=== PATIENT | female | born 1980 | race Hispanic/Latino ===

== ENCOUNTER 2021-11-17 08:22 | Emergency (ER) | payer SELFPAY ==
[~2021-11-17] VITALS: Ht 149.9 cm; Wt 61.2 kg
[2021-11-17] MEDS ORDERED: SODIUM CHLORIDE FLUSH 10 ML SYR IV PRN (08:45)
[2021-11-17 09:04] LABS: BASOPHILS # (AUTO) 0.1 (0.0-0.1); BASOPHILS % 1.3 % (0.0-1.0); EOSINOPHILS # (AUTO) 0.1 (0.0-0.4); EOSINOPHILS % 2.9 % (0.0-6.0); HEMATOCRIT 33.8 % (34.2-44.1); HEMOGLOBIN 9.7 g/dL (12.0-16.0); LYMPHOCYTES # (AUTO) 1.7 (1.0-3.2); LYMPHOCYTES % 42.9 % (18.0-39.1); MEAN CORPUSCULAR HEMOGLOBIN 20.2 pg (28-32); MEAN CORPUSCULAR HGB CONC 28.7 g/dL (31-35); MEAN CORPUSCULAR VOLUME 70.3 fL (81-99); MONOCYTES # (AUTO) 0.3 (0.2-0.8); MONOCYTES % 8.1 % (4.4-11.3); NEUTROPHILS # (AUTO) 1.7 (2.1-6.9); NEUTROPHILS % 44.8 % (38.7-80.0); PLATELET COUNT 342 x10e3/uL (140-360); RED BLOOD COUNT 4.81 x10e6/uL (3.6-5.1); RED CELL DISTRIBUTION WIDTH 18.3 % (11.7-14.4)
[2021-11-17 09:22] LABS: INR 0.82; PARTIAL THROMBOPLASTIN TIME 29.9 seconds (23.8-35.5); PROTHROMBIN TIME 12.1 seconds (11.9-14.5)
[2021-11-17 09:48] LABS: ALANINE AMINOTRANSFERASE 14 IU/L (0-55); ALBUMIN 3.8 g/dL (3.5-5.0); ALBUMIN/GLOBULIN RATIO 1.3 (0.8-2.0); ALKALINE PHOSPHATASE 89 IU/L (40-150); BLOOD UREA NITROGEN 12 mg/dL (7-26); BUN/CREATININE RATIO 16 (6-25); CALCIUM 8.7 mg/dL (8.4-10.2); CARBON DIOXIDE 20 mmol/L (22-29); CHLORIDE 112 mmol/L (98-107); CREATININE, SERUM 0.76 mg/dL (0.57-1.11); GLUCOSE 102 mg/dL (74-118); SODIUM 142 mmol/L (136-145)
[2021-11-17 09:57] LABS: CLARITY,URINE CLEAR (CLEAR); COLOR,URINE YELLOW (YELLOW); KETONES,URINE NEGATIVE (NEGATIVE); LEUKOCYTE ESTERASE ,URINE NEGATIVE (NEGATIVE); NITRITE,URINE NEGATIVE (NEGATIVE); PROTEIN,URINE DIPSTICK NEGATIVE (NEGATIVE)
[2021-11-17 09:58] LABS: AMPHETAMINES SCREEN,URINE NEGATIVE (NEGATIVE); BENZODIAZEPINES SCREEN,URINE NEGATIVE (NEGATIVE); PHENCYCLIDINE SCREEN,URINE NEGATIVE (NEGATIVE); URINE UROBILINOGEN 0.2 mg/dL (0.2 - 1)
[2021-11-17 10:04] LABS: BACTERIA,URINE FEW /HPF; EPITHELIAL CELLS,URINE FEW /LPF; RBC,URINE 0-5 /HPF (0-5); WBC,URINE (MAN) 0-5 /HPF (0-5)
[2021-11-17] MEDS ORDERED: FERROUS SULFAT325 MG PO (11:20)
[2021-11-17] MEDS ORDERED: DOCUSATE SODIU100 MG PO (11:20)
[2021-11-17 11:35] VITALS: BP 105/64
== END 2021-11-17 11:37 | disposition home or self-care (01) ==
LOC: ER 08:32
DX: R42 Dizziness and giddiness (principal); D64.9 Anemia, unspecified; F12.90 Cannabis use, unspecified, uncomplicated; Z20.822 Contact with and (suspected) exposure to COVID-19
CPT/HCPCS: 36415; 70450; 71045; 80053; 80307; 81001; 84484; 84702; 85025; 85610; 85730; 93005; 94760; 99284; U0002

== ENCOUNTER 2022-08-13 01:40 | Emergency (ER) | payer SELFPAY ==
[~2022-08-13] VITALS: Ht 149.9 cm; Wt 61.2 kg
[~2022-08-13 01:40] MED LIST: DOCUSATE SODIU100 MG PO; FERROUS SULFAT325 MG PO
[2022-08-13] MEDS ORDERED: SODIUM CHLORIDE FLUSH 10 ML SYR IV PRN (02:00)
[2022-08-13] MEDS ORDERED: ASPIRIN 325 MG TAB PO ONE (02:00)
[2022-08-13 02:03] LABS: BASOPHILS % 0.6 % (0.0-1.0); EOSINOPHILS # (AUTO) 0.1 (0.0-0.4); EOSINOPHILS % 2.2 % (0.0-6.0); HEMATOCRIT 36.8 % (34.2-44.1); HEMOGLOBIN 10.9 g/dL (12.0-16.0); LYMPHOCYTES # (AUTO) 2.4 (1.0-3.2); LYMPHOCYTES % 36.8 % (18.0-39.1); MEAN CORPUSCULAR HEMOGLOBIN 23.3 pg (28-32); MEAN CORPUSCULAR HGB CONC 29.6 g/dL (31-35); MEAN CORPUSCULAR VOLUME 78.6 fL (81-99); MONOCYTES # (AUTO) 0.6 (0.2-0.8); MONOCYTES % 8.8 % (4.4-11.3); NEUTROPHILS # (AUTO) 3.3 (2.1-6.9); NEUTROPHILS % 51.3 % (38.7-80.0); PLATELET COUNT 310 x10e3/uL (140-360); RED BLOOD COUNT 4.68 x10e6/uL (3.6-5.1); RED CELL DISTRIBUTION WIDTH 16.3 % (11.7-14.4)
[2022-08-13 02:13] LABS: INR 0.9; PROTHROMBIN TIME 12.6 seconds (11.9-14.5)
[2022-08-13 02:14] LABS: PARTIAL THROMBOPLASTIN TIME 31.3 seconds (23.8-35.5)
[2022-08-13] MEDS ORDERED: KETOROLAC TROMETHAMINE 30 MG/ML VIAL IV STA (02:21)
[2022-08-13 02:22] LABS: ALANINE AMINOTRANSFERASE 59 IU/L (0-55); ALBUMIN 3.9 g/dL (3.5-5.0); ALBUMIN/GLOBULIN RATIO 1.3 (0.8-2.0); ALKALINE PHOSPHATASE 89 IU/L (40-150); ANION GAP 14.7 mmol/L (8-16); BLOOD UREA NITROGEN 16 mg/dL (7-26); BUN/CREATININE RATIO 20 (6-25); CALCIUM 9.1 mg/dL (8.4-10.2); CARBON DIOXIDE 21 mmol/L (22-29); CHLORIDE 109 mmol/L (98-107); CREATININE, SERUM 0.82 mg/dL (0.57-1.11); GLUCOSE 108 mg/dL (74-118); POTASSIUM 3.7 mmol/L (3.5-5.1); SODIUM 141 mmol/L (136-145)
[2022-08-13] MEDS ORDERED: METOCLOPRAMIDE HCL 10 MG/2ML VIAL IV ONE (02:30)
[2022-08-13] MEDS ORDERED: SODIUM CHLORIDE 0.9% 1000ML 1,000 ML IV SCH (02:30)
[2022-08-13 02:38] LABS: CLARITY,URINE CLEAR (CLEAR); COLOR,URINE YELLOW (YELLOW); KETONES,URINE NEGATIVE (NEGATIVE); LEUKOCYTE ESTERASE ,URINE NEGATIVE (NEGATIVE); NITRITE,URINE NEGATIVE (NEGATIVE); PROTEIN,URINE DIPSTICK NEGATIVE (NEGATIVE); URINE UROBILINOGEN 0.2 mg/dL (0.2 - 1)
[2022-08-13 02:42] LABS: AMPHETAMINES SCREEN,URINE NEGATIVE (NEGATIVE); BENZODIAZEPINES SCREEN,URINE NEGATIVE (NEGATIVE); PHENCYCLIDINE SCREEN,URINE NEGATIVE (NEGATIVE)
[2022-08-13 02:48] LABS: BACTERIA,URINE FEW /HPF; EPITHELIAL CELLS,URINE FEW /LPF; RBC,URINE 0-5 /HPF (0-5); WBC,URINE (MAN) 0-5 /HPF (0-5)
[2022-08-13] MEDS ORDERED: ONDANSETRON ODT4 MG PO (04:05)
[2022-08-13] MEDS ORDERED: IBUPROFEN800 MG PO (04:05)
[2022-08-13 04:17] VITALS: BP 112/65
== END 2022-08-13 04:16 | disposition home or self-care (01) ==
LOC: ER 01:44
DX: R07.9 Chest pain, unspecified (principal); R42 Dizziness and giddiness; R51.9 Headache, unspecified; R11.0 Nausea; F12.10 Cannabis abuse, uncomplicated; F41.9 Anxiety disorder, unspecified; D64.9 Anemia, unspecified; Z88.1 Allergy status to other antibiotic agents; Z88.0 Allergy status to penicillin
CPT/HCPCS: 36415; 71045; 80053; 80307; 81001; 83880; 84484; 84702; 85025; 85610; 85730; 93005; 94760; 99284; J1885; J2765; J7030